=== PATIENT | female | born 1975 | race Caucasian/White ===

== ENCOUNTER → 2021-11-30 | Outpatient (CLI) | payer MEDICARE, OTHER ==
[2021-11-30 22:35] LABS: HGB 7.3 g/dL (12.0-15.0); MCH 18.8 pg (27.0-32.0); MCHC 28.1 g/dL (32.0-37.0); Mean Platelet Volume 8.5 fL (9.5-12.2); NRBC Per 100 WBC 0 /100 WBCS (0.0-0.0); Platelet Count 427 X 10*3/uL (140-440); RBC 3.88 X 10*6/uL (4.10-5.20); WBC 6.78 X 10*3/uL (4.50-10.00)
[2021-11-30 22:59] LABS: Basophils # (A) 0.05 X 10*3/uL (0.00-0.10); Basophils % (A) 0.7 %; Eosinophils # (A) 0.12 X 10*3/uL (0.04-0.35); Eosinophils % (A) 1.8 %; Hypochromasia (M) 2+; Immature Grans, Automated 0.3 %; Lymphocytes # (A) 2.79 X 10*3/uL (0.90-5.00); Lymphocytes % (A) 41.2 %; Microcytosis (M) 3+; Monocytes # (A) 0.56 X 10*3/uL (0.20-1.00); Monocytes % (A) 8.3 %; Neutrophils # (A) 3.24 X 10*3/uL (1.80-7.70); Neutrophils % (A) 47.7 %
[2021-11-30 23:14] LABS: ALT 16 U/L (8-44); AST 28 U/L (13-35); African American GFR (CKD) 108.1 (60.0-200.0); BUN/Creat Ratio 12.27 Ratio (12.00-20.00); Blood Urea Nitrogen 9.3 mg/dL (9.0-27.0); Calcium 8.1 mg/dL (8.7-10.3); Carbon Dioxide 18.3 mmol/L (20.0-27.5); Chloride 106 mmol/L (96-109); Creatine Kinase 62 U/L (26-186); Glucose 100 mg/dL (70-110); Non-African American GFR(CKD) 93.3 (60.0-200.0); Potassium 4.1 mmol/L (3.5-5.5); Sodium 135 mmol/L (135-145); Uric Acid 2.6 mg/dL (2.9-7.7)
[2021-11-30 23:28] LABS: C Reactive Protein <0.30 mg/dL (0.00-0.80); Rheumatoid Factor, Qnt <10 IU/mL (0-15)
[2021-12-01 00:10] LABS: Erythrocyte Sedimentation Rate 52 mm/Hr (0-20)
[2021-12-01 04:07] LABS: Cyclic Citrull Pep IgG Unit <0.5 U/mL; Cyclic Citrullinated Pep IgG NEGATIVE (NEGATIVE)
[2021-12-01 09:48] LABS: HLA B27 NEGATIVE
[2021-12-03 12:51] LABS: Angiotensin-1 Converting Enz. 44 U/L (8-52)
[2021-12-03 19:49] LABS: Vitamin D, 1, 25-Dihydroxy 72 pg/mL (20 - 79)
== END | disposition home or self-care (01) ==
LOC: LABWHC1 11-29 10:22
PROVIDERS: ATTEND Orthopaedic Surgery
DX: Z48.89 Encounter for other specified surgical aftercare (principal); M79.642 Pain in left hand; M65.4 Radial styloid tenosynovitis [de Quervain]; M19.042 Primary osteoarthritis, left hand; M18.12 Unilateral primary osteoarthritis of first carpometacarpal joint, left hand; M25.532 Pain in left wrist
CPT/HCPCS: 36415; 80048; 82164; 82306; 82550; 82652; 83520; 84439; 84443; 84450; 84460; 84550; 85025; 85652; 86038; 86140; 86200; 86431; 86812

== ENCOUNTER → 2022-09-27 | Outpatient (CLI) | payer MEDICARE, OTHER ==
[2022-09-27 22:33] LABS: HCT 27.7 % (37.2-46.3); HGB 7.8 g/dL (12.0-15.0); MCH 19.8 pg (27.0-32.0); MCHC 28.2 g/dL (32.0-37.0); MCV 70.3 fL (80.0-97.0); Mean Platelet Volume 8.5 fL (9.5-12.2); NRBC Per 100 WBC 0 /100 WBCS (0.0-0.0); Platelet Count 378 X 10*3/uL (140-440); RBC 3.94 X 10*6/uL (4.10-5.20); RDW 19.7 % (11.5-14.5); WBC 5.08 X 10*3/uL (4.50-10.00)
[2022-09-27 22:58] LABS: % Iron Saturation 2.09 (12.00-45.00); African American GFR (CKD) 103.4 (60.0-200.0); Albumin/Globulin Ratio 1.48 (1.60-3.17); Anion Gap 9.8 mmol/L (10.00-18.00); BUN/Creat Ratio 12.46 Ratio (12.00-20.00); Blood Urea Nitrogen 9.8 mg/dL (9.0-27.0); Calcium 8.5 mg/dL (8.7-10.3); Carbon Dioxide 22.2 mmol/L (20.0-27.5); Ferritin 4.9 ng/mL (10.0-291.0); Globulin 2.7 g/dL (1.6-3.3); Non-African American GFR(CKD) 89.2 (60.0-200.0); Potassium 3.9 mmol/L (3.5-5.5); Total Bilirubin 0.3 mg/dL (0.30-1.20); Total Protein 6.8 g/dL (6.2-8.2)
[2022-09-27 23:16] LABS: Basophils # (A) 0.03 X 10*3/uL (0.00-0.10); Basophils % (A) 0.6 %; Eosinophils # (A) 0.12 X 10*3/uL (0.04-0.35); Eosinophils % (A) 2.4 %; Immature Grans, Automated 0.2 %; Lymphocytes # (A) 2.52 X 10*3/uL (0.90-5.00); Lymphocytes % (A) 49.6 %; Monocytes % (A) 9.8 %; Neutrophils % (A) 37.4 %
[2022-09-27 23:17] LABS: Microcytosis (M) 2+
== END | disposition home or self-care (01) ==
LOC: LABWHC1 15:56
PROVIDERS: ATTEND Internal Medicine Endocrinology, Diabetes & Metabolism
DX: M81.0 Age-related osteoporosis without current pathological fracture (principal); D50.9 Iron deficiency anemia, unspecified; E55.9 Vitamin D deficiency, unspecified
CPT/HCPCS: 36415; 80053; 82306; 82523; 82728; 83540; 83550; 83970; 84443; 84466; 85025